=== PATIENT | female | born 1965 | race Asian ===

== ENCOUNTER 2017-10-22 11:15 | Outpatient (CLI) | payer BC | END 2017-10-23 05:19 | disposition home or self-care (01) | LOC: MAMMO 11:15 | DX: Z12.31 Encounter for screening mammogram for malignant neoplasm of breast (principal) ==

== ENCOUNTER 2017-10-27 08:40 | Emergency (ER) | payer OTHER ==
[~2017-10-27] VITALS: Ht 165.1 cm; Wt 127.0 kg
== END 2017-10-27 10:38 | disposition home or self-care (01) ==
LOC: ED 08:40
DX: S69.92XA Unspecified injury of left wrist, hand and finger(s), initial encounter (principal); S69.91XA Unspecified injury of right wrist, hand and finger(s), initial encounter; M25.532 Pain in left wrist; M25.531 Pain in right wrist; W19.XXXA Unspecified fall, initial encounter
CPT/HCPCS: 99282

== ENCOUNTER 2018-09-04 23:12 | Outpatient (CLI) | payer OTHER | END 2018-09-04 23:15 | disposition short-term general hospital (02) | LOC: AMB 23:12 | DX: R07.89 Other chest pain (principal) | CPT/HCPCS: A0425; A0427 ==

== ENCOUNTER 2018-09-04 23:23 | Emergency (ER) | payer OTHER ==
[~2018-09-04] VITALS: Ht 162.6 cm; Wt 111.1 kg
[2018-09-04 23:51] LABS: PLATELET COUNT 341 K/uL (152-353)
[2018-09-05 00:04] LABS: POTASSIUM 4.2 mmol/L (3.6-5.2); SODIUM 139 mmol/L (136-145)
[2018-09-05 03:31] VITALS: BP 168/78; TEMP 98.6
== END 2018-09-05 03:33 ==
LOC: ED 23:23
PROVIDERS: Family Medicine
DX: R07.89 Other chest pain (principal); M94.0 Chondrocostal junction syndrome [Tietze]
CPT/HCPCS: 36415; 80053; 81000; 82550; 82553; 84484; 85027; 87502; 93005; 99283; J1885

== ENCOUNTER 2019-02-01 07:30 | Outpatient (CLI) | payer OTHER | END 2019-02-01 07:33 | disposition short-term general hospital (02) | LOC: AMB 07:30 | DX: R06.02 Shortness of breath (principal) | CPT/HCPCS: A0425; A0427 ==

== ENCOUNTER 2019-02-01 07:34 | Emergency (ER) | payer OTHER ==
[~2019-02-01] VITALS: Ht 162.6 cm; Wt 111.1 kg
[2019-02-01 07:38] VITALS: TEMP 97.5
[2019-02-01 08:26] LABS: PLATELET COUNT 323 K/uL (152-353)
[2019-02-01 08:42] LABS: POTASSIUM 3.1 mmol/L (3.6-5.2); SODIUM 139 mmol/L (136-145)
[2019-02-01 11:00] VITALS: BP 178/97
== END 2019-02-01 11:22 | disposition short-term general hospital (02) ==
LOC: ED 07:34
PROVIDERS: Internal Medicine
PROC: 0T9B70Z Drainage of Bladder with Drainage Device, Via Natural or Artificial Opening (ICD-10-PCS; principal; 2019-02-01)
DX: R06.03 Acute respiratory distress (principal); I50.9 Heart failure, unspecified; R00.0 Tachycardia, unspecified
CPT/HCPCS: 36600; 51702; 80053; 82550; 82553; 82805; 83880; 84484; 85027; 85379; 87502; 93005; 94664; 96372; 96374; 96375; 99285; J0360; J1100; J1940; J2060; J2930

== ENCOUNTER 2019-02-01 11:20 | Outpatient (CLI) | payer OTHER | END 2019-02-01 12:20 | disposition short-term general hospital (02) | LOC: AMB 11:20 | DX: R06.02 Shortness of breath (principal) | CPT/HCPCS: A0425; A0427 ==

== ENCOUNTER 2022-04-30 09:22 | Outpatient (CLI) | payer OTHER | END 2022-04-30 19:05 | disposition home or self-care (01) | LOC: MAMMO 09:22 | PROVIDERS: ATTEND Obstetrics & Gynecology | DX: Z12.31 Encounter for screening mammogram for malignant neoplasm of breast (principal) ==